=== PATIENT | female | born 1965 | race Caucasian/White ===

== ENCOUNTER 2020-10-23 13:40 | Emergency (ER) | payer MEDICARE, MEDICAID, SELFPAY ==
[2020-10-23 13:46] VITALS: BP 151/65; PULSE 70; RESP 18; TEMP 37; O2SAT 96
--- NOTE | 2020-10-23 13:49 | DI.RAD.S_ITS ---
PROCEDURE: XR FOOT LT MIN 3V INDICATIONS: twisting injury TECHNIQUE: 3 views of the foot were acquired. COMPARISON: None. FINDINGS: Bones: No fractures or dislocations. No suspicious bony lesions. Incidental note is made of an accessory ossicle, an os peroneum. Age-appropriate bony degenerative changes are seen. Toe alignment abnormalities are seen, with overlapping of the 4th and 5th toes. Soft tissues: No tibiotalar joint effusion. Achilles tendon appears normal. IMPRESSION: Unremarkable foot plain film for age, without an acute bony abnormality seen. Degenerative changes are seen with toe alignment abnormalities. Dictated by: Edgardo Larry M.D. on 10/23/2020 at 13:12 Approved by: Edgardo Larry M.D. on 10/23/2020 at 13:13
--- NOTE | 2020-10-23 13:56 | ED_ITS ---
HPI - Extremity Injury (Lower) General Chief Complaint: Extremity Injury, Lower Stated Complaint: landed wrong on left foot Time Seen by Provider: 10/23/20 13:56 Source: patient Mode of arrival: Ambulatory Limitations: no limitations History of Present Illness HPI Narrative: 55-year-old female nonsmoker presents with a chief complaint of an injury to her left foot just prior to arrival. She was apparently trying to do some acrobatic moves with her granddaughter and jumped up and in coming down she inverted her left ankle and bent her great toe back. She now has pain with ambulation and improvement with rest. She denies any numbness, tingling or weakness. She denies other injury and is otherwise well and free of complaint MD complaint: foot injury Onset (ago): hour(s) Type of Injury: inversion Place: home Severity: mild Relieving factors: rest Exacerbating factors: weight bearing and movement Context: jumping Associated symptoms: able to partially bear weight Other symptoms: none Related Data Allergies Allergy/AdvReac Type Severity Reaction Status Date / Time erythromycin base Allergy Verified 10/23/20 13:48 hydromorphone [From Dilaudid] Allergy Verified 10/23/20 13:48 Review of Systems Constitutional Constitutional: Denies chills, Denies fatigue, Denies fever(s), Denies frequent falls, Denies lethargy and Denies weakness Eyes Eyes: Denies change in vision, Denies eye discharge, Denies irritation and Denies loss of vision ENT Ears, Nose, Mouth, and Throat: Denies change in voice, Denies dizziness, Denies neck pain, Denies sore throat and Denies throat swelling Cardiovascular Cardiovascular: Denies chest pain, Denies irregular heart rhythm, Denies lightheadedness, Denies palpitations, Denies dyspnea, Denies dyspnea on exertion and Denies orthopnea Respiratory Respiratory: Denies cough, Denies dyspnea, Denies dyspnea on exertion and Denies wheezing Gastrointestinal Gastrointestinal: Denies abdominal pain, Denies change in bowel habits, Denies diarrhea, Denies nausea and Denies vomiting Musculoskeletal Musculoskeletal: Reports limited range of motion, Denies neck pain and Denies numbness Integumentary/Breasts Skin/Breast: Denies pruritus, Denies erythema, Denies rash and Denies wounds Neurologic Neurologic: Denies behavioral changes, Denies confusion, Denies dizziness, Denies frequent falls, Denies loss of vision, Denies numbness and Denies weakness Psychiatric Psychiatric: Denies anxiety, Denies behavioral changes, Denies confusion, Denies depression, Denies homicidal ideation and Denies suicidal ideation Endocrine Endocrine: Denies fatigue, Denies flushing and Denies palpitations Hematologic/Lymphatic Hematologic/Lymphatic: Denies easy bruising Allergic/Immunologic Allergic/Immunologic: Denies urticaria, Denies throat swelling and Denies wheezing Patient History Smoking Status: Never smoker Substance Use Type: does not use Exam Narrative Exam Narrative: GEN: AOx3 and in mild distress EYES: Pupils are equal, round, and reactive to light and accommodation. Extraoccular muscles are intact bilaterally. There is no subconjunctival hemorrhage or exudate. CHEST: Lungs are clear to auscultation bilaterally and free of wheezes, rales, or rhonchi. Heart rate is regular rhythm, there are no murmurs, clicks, rubs, or gallops. There is no chest wall tenderness. ABD: Abdomen is soft and nontender. There is no guarding or rebound. Bowel sounds are normal in all 4 quadrants. There is no mass or organomegaly. EXT: Full but painful range of motion of left forefoot, in particular left great toe. No obvious deformity, closed, isolated and neurovascularly intact SKIN: Warm, pink, and dry. No erythema or rash Initial Vital Signs Initial Vital Signs: Vital Signs Temperature 98.6 F 10/23/20 13:46 Pulse Rate 70 10/23/20 13:46 Respiratory Rate 18 10/23/20 13:46 Blood Pressure 151/65 H 10/23/20 13:46 Pulse Oximetry 96 10/23/20 13:46 Course Orders Ordered: ED Orders 10/23/20 13:49 XR foot LT min 3V Stat 10/23/20 14:00 BMP [Basic Metabolic Panel] Stat Vital Signs Vital signs: Vital Signs - 8 hr 10/23/20 13:46 Temperature 98.6 F Pulse Rate 70 Respiratory Rate 18 Blood Pressure 151/65 H Pulse Oximetry 96 MDM - Extremity Injury (Lower) Lab Data Result diagrams: 10/23/20 14:00 10/23/20 14:00 Labs: Lab Results 10/23/20 Range/Units 14:00 Sodium 136 L (137-145) mmol/L Potassium 3.4 (3.4-5.1) mmol/L Chloride 99 (98-107) mmol/L Carbon Dioxide 27 (22-32) mmol/L BUN 11 (7-17) mg/dL Creatinine 0.57 (0.52-1.04) mg/dL Estimated GFR > 60.0 (>60) mL/min BUN/Creatinine Ratio 19.3 (6-22) Glucose 115 H (70-100) mg/dL Calcium 9.7 (8.4-10.2) mg/dL Imaging Data Extremity x-ray #1: Radiologist's Impression: [address] [id number] ReportSigned Patient: Riddhi Basurto MMR#: [id number]: 1965Acct:[id number]/Sex: 55 / FDate of Service: 10/23/20Loc: EDAccession Number: [id number] Procedure: XR foot LT min 3V Ordering Provider: Matt Merino D.O. PROCEDURE: XR FOOT LT MIN 3V INDICATIONS: twisting injury TECHNIQUE: 3 views of the foot were acquired. COMPARISON: None. FINDINGS: Bones: No fractures or dislocations. No suspicious bony lesions. Incidental note is made of an accessory ossicle, an os peroneum. Age-appropriate bony degenerative changes are seen. Toe alignment abnormalities are seen, with overlapping of the 4th and 5th toes. Soft tissues: No tibiotalar joint effusion. Achilles tendon appears normal. IMPRESSION: Unremarkable foot plain film for age, without an acute bony abnormality seen. Degenerative changes are seen with toe alignment abnormalities. Dictated by: Edgardo Larry M.D. on 10/23/2020 at 13:12 Approved by: Edgardo Larry M.D. on 10/23/2020 at 13:13 Discharge Plan Departure Patient Disposition: Home Clinical Impression: Sprain of foot, left Qualifiers: Encounter type: initial encounter Qualified Code(s): S93.602A - Unspecified sprain of left foot, initial encounter Instructions: DI for Foot Sprain Activity Restrictions/Additional Instructions: *You have been diagnosed with [left foot sprain, no evidence of fracture or dislocation on the x-ray.] *What to do: *Please continue to take your regular medications as directed. [ ] New medication prescriptions sent to your pharmacy: [ ] [ ] New medication written as a paper prescription [x ] No new medications given *Please follow up with your primary care provider in 2-3 days, call for an appointment. Let them know you were seen in the Emergency Department and that we ask that you be seen in follow up. We will electronically transmit a record of clarissa grimaldo's note if your PCP is in our system *If you do not have a primary care provider please contact the [facility] Resource line at [phone]. They will ask some questions about your medical history and help get you set up with a doctor in the community. *Return to Emergency Department if you should have any new, worsening or concerning symptoms, such as [fever greater than 101 F, shaking chills, worsening pain, persistent vomiting or other bothersome symptoms]
[2020-10-23 14:44] LABS: BUN Creatinine Ratio 19.3 (6-22); Blood Urea Nitrogen 11 mg/dL (7-17); Calcium 9.7 mg/dL (8.4-10.2); Carbon Dioxide 27 mmol/L (22-32); Chloride 99 mmol/L (98-107); Estimated Glomerular Filt Rate > 60.0 mL/min (>60); Glucose 115 mg/dL (70-100); HEMOLYSIS < 15 (0-50); Potassium 3.4 mmol/L (3.4-5.1); Sodium 136 mmol/L (137-145)
[2020-10-23] MEDS: IBUPROFEN 400 MG TABLET 800 MG PO (15:05)
== END 2020-10-23 15:10 | disposition home or self-care (01) ==
PROVIDERS: Emergency Provider Emergency Medicine
DX: S93.602A Unspecified sprain of left foot, initial encounter (principal); X50.1XXA Overexertion from prolonged static or awkward postures, initial encounter
CPT/HCPCS: 29515; 29550; 36415; 73630; 80048; 99283